=== PATIENT | male | born 1970 | race Caucasian/White ===

== ENCOUNTER 2016-11-13 14:20 | Inpatient (IN) | payer MEDICARE, MEDICAID ==
[~2016-11-13] VITALS: Ht 165.1 cm; Wt 101.3 kg
[~2016-11-13 14:20] MED LIST: LISI2.5T47 PO; PIOG30TA10 PO
[2016-11-13] MEDS ORDERED: DILT180C69 PO (14:38)
[2016-11-13] MEDS ORDERED: SERT-112 PO (14:38)
[2016-11-13] MEDS ORDERED: RIVA20TA PO (14:38)
[2016-11-13] MEDS ORDERED: SEVE800T8 PO (14:38)
[2016-11-13] MEDS ORDERED: METO-411 PO (14:38)
[2016-11-13] MEDS ORDERED: ATOR40TA70 PO (14:38)
[2016-11-13 15:04] LABS: BASOPHILS % 0.8 % (0.0-2.0); EOSINOPHILS % 2.2 % (0.0-5.0); HEMATOCRIT. 31.6 % (42.0-52.0); LYMPHOCYTES % 14.2 % (20.0-50.0); MEAN CORPUSCULAR HEMOGLOBIN 33.3 pg (28.0-32.0); MEAN CORPUSCULAR VOLUME 95.9 fL (80.0-94.0); MEAN PLATELET VOLUME 7.3 fl (7.4-10.4); MONOCYTES % 5.4 % (2.0-8.0); NEUTROPHILS % 77.4 % (40.0-76.0); PLATELET 204 x1000/uL (130-400); RED BLOOD CELL COUNT 3.29 mill/uL (4.7-6.1); RED CELL DISTRIBUTION WIDTH 13.5 % (11.6-14.6)
[2016-11-13 15:10] LABS: BG BASE EXCESS -6.8 mmol/L (-2.0-2.0); BG DEOXYHEMOGLOBIN 5.9 % (0.0-5.0); BG FRACTION INSPIRED OXYGEN 36; BG HCO3 ACT 18.9 mmol/L (22.0-26.0); BG METHEMOGLOBIN 0.4 % (0.0-1.5); BG OXYHEMOGLOBIN 92.7 % (94.0-97.0); BG PCO2 38.5 mmHg (35.0-45.0); BG PH 7.309 (7.350-7.450); BG PO2 75.2 mmHg (75.0-100.0); BG SAMPLE SITE RIGHT RADIAL; BG TOTAL HEMOGLOBIN 12.4 g/dL (12.0-18.0); BG VENT MODE NASAL CANNULA
[2016-11-13 15:12] LABS: INR 1.1; PROTHROMBIN TIME 11.4 sec (9.4-11.6)
[2016-11-13 15:15] LABS: CARBON DIOXIDE 21 mEq/L (21-32); CHLORIDE 99 mEq/L (98-107); ETHANOL BLOOD < 10 mg/dL; PHOSPHORUS 3.2 mg/dL (2.5-4.9)
[2016-11-13 15:20] LABS: TROPONIN I 0.97 ng/mL (0.00-0.04)
[2016-11-13 15:23] LABS: CLARITY URINE CLEAR (CLEAR); COLOR URINE YELLOW (YELLOW); GLUCOSE URINE 1+ (NEGATIVE); KETONES URINE NEGATIVE (NEGATIVE); LEUKOCYTE ESTERASE URINE NEGATIVE (NEGATIVE); NITRITE URINE NEGATIVE (NEGATIVE); OCCULT BLOOD URINE 1+ (NEGATIVE); PH URINE 6.5 (4.5-8.0); PROTEIN URINE 3+ (NEGATIVE); SPECIFIC GRAVITY URINE 1.011 (1.005-1.030); UROBILINOGEN URINE 0.2 E.U./dL (0.2-1.0)
[2016-11-13 15:37] LABS: *AMPHETAMINES SCREEN URINE NEGATIVE (NEGATIVE); *BARBITURATES SCREEN URINE NEGATIVE (NEGATIVE); *BENZODIAZEPINES SCREEN URINE NEGATIVE (NEGATIVE); *COCAINE SCREEN URINE NEGATIVE (NEGATIVE); CANNABINOID URINE SCREEN NEGATIVE (NEGATIVE); METHADONE URINE SCREEN NEGATIVE (NEGATIVE); OPIATES URINE SCREEN NEGATIVE (NEGATIVE); PHENCYCLIDINE URINE SCREEN NEGATIVE (NEGATIVE)
[2016-11-13] MEDS ORDERED: ASPIRIN 300MG SUPP PR ONE (15:45)
[2016-11-13] MEDS ORDERED: ACETAMINOPHEN 325MG TABLET PO PRN (16:00)
[2016-11-13] MEDS ORDERED: DIPHENHYDRAMINE 50MG/ML VIAL IV PRN (16:00)
[2016-11-13] MEDS ORDERED: IPRATROPIUM/ALBUTEROL 0.5-3(2.5)MG/3ML NEB INH PRN (16:00)
[2016-11-13] MEDS ORDERED: CLONIDINE 0.1MG TABLET PO PRN (16:00)
[2016-11-13] MEDS ORDERED: ONDANSETRON HCL 4MG/2ML VIAL IV PRN (16:00)
[2016-11-13 16:25] LABS: AMMONIA 56 uMol/L (<32)
[2016-11-13] MEDS ORDERED: POTASSIUM CHLORIDE INJ 40 MEQ in DEXT 5% WATER 250 ML IV NR (17:00)
[2016-11-14] VITALS (15 sets, daily range): BP systolic 69–172; BP diastolic 43–95
[2016-11-14 07:51] LABS: BASOPHILS % 1.4 % (0.0-2.0); EOSINOPHILS % 0.2 % (0.0-5.0); HEMATOCRIT. 31.8 % (42.0-52.0); LYMPHOCYTES % 7.7 % (20.0-50.0); MEAN CORPUSCULAR VOLUME 95.7 fL (80.0-94.0); MEAN PLATELET VOLUME 7.6 fl (7.4-10.4); MONOCYTES % 4.7 % (2.0-8.0); PLATELET 216 x1000/uL (130-400); RED BLOOD CELL COUNT 3.32 mill/uL (4.7-6.1); RED CELL DISTRIBUTION WIDTH 13.8 % (11.6-14.6)
[2016-11-14 07:57] LABS: CHLORIDE 105 mEq/L (98-107)
[2016-11-14 08:01] LABS: AMMONIA 30 uMol/L (<32)
[2016-11-14 08:06] LABS: CARBON DIOXIDE 20 mEq/L (21-32); HDL CHOLESTEROL 58 mg/dL (40-59); LDL CHOLESTEROL 91 mg/dL (5-100); PHOSPHORUS 2.9 mg/dL (2.5-4.9)
[2016-11-14] MEDS: METOPROLOL TARTRATE 50MG TABLET PO SCH ×2 (10:56→21:00)
[2016-11-14] MEDS: ASPIRIN 81MG TABLET PO SCH (10:56)
[2016-11-14] MEDS: AMLODIPINE 5MG TABLET PO SCH ×2 (10:57→21:00)
[2016-11-14] MEDS: ENOXAPARIN 30MG/0.3ML SYR SUBCUT SCH (10:58)
[2016-11-14] MEDS ORDERED: MAGNESIUM 4 G PREMIX 100 ML IV SCH (11:00)
[2016-11-14 12:29] LABS: BG BASE EXCESS -1.9 mmol/L (-2.0-2.0); BG DEOXYHEMOGLOBIN 4.6 % (0.0-5.0); BG FRACTION INSPIRED OXYGEN 28; BG HCO3 ACT 22.3 mmol/L (22.0-26.0); BG METHEMOGLOBIN 0.1 % (0.0-1.5); BG OXYGEN SATURATION 95.3 % (92.0-98.5); BG OXYHEMOGLOBIN 94.3 % (94.0-97.0); BG PCO2 36.3 mmHg (35.0-45.0); BG PH 7.406 (7.350-7.450); BG PO2 75.5 mmHg (75.0-100.0); BG SAMPLE SITE RIGHT RADIAL; BG VENT MODE NASAL CANNULA
[2016-11-14] MEDS ORDERED: SODIUM CHLORIDE 0.9% 1000ML BAG (SEPSIS BOLUS) IV NR (21:23)
[2016-11-14] MEDS: ATORVASTATIN CALCIUM 20MG TABLET PO SCH ×2 (21:38→22:47)
[2016-11-15] VITALS (75 sets, daily range): BP systolic 64–153; BP diastolic 35–89
[2016-11-15] MEDS ORDERED: PHENYLEPHRINE 40 MG in DEXT 5% WATER 250 ML IV PRN (03:07)
[2016-11-15 06:04] LABS: BASOPHILS % 0.7 % (0.0-2.0); EOSINOPHILS % 1.7 % (0.0-5.0); HEMATOCRIT. 31.2 % (42.0-52.0); HEMOGLOBIN. 10.8 g/dL (14.0-18.0); LYMPHOCYTES % 16.5 % (20.0-50.0); MEAN CORPUSCULAR HEMOGLOBIN 33.5 pg (28.0-32.0); MEAN CORPUSCULAR VOLUME 96.6 fL (80.0-94.0); MEAN PLATELET VOLUME 7.7 fl (7.4-10.4); MONOCYTES % 7.3 % (2.0-8.0); NEUTROPHILS % 73.8 % (40.0-76.0); PLATELET 203 x1000/uL (130-400); RED BLOOD CELL COUNT 3.23 mill/uL (4.7-6.1)
[2016-11-15] MEDS: ASPIRIN 81MG TABLET PO SCH (12:21)
[2016-11-15] MEDS: ENOXAPARIN 30MG/0.3ML SYR SUBCUT SCH (12:21)
[2016-11-15] MEDS: MIDODRINE HCL 5MG TABLET PO SCH ×2 (12:22→17:00)
[2016-11-15] MEDS: HYDROCODONE/ACETAMINOPHEN 5/325MG TABLET PO PRN (18:33)
[2016-11-15] MEDS: METOPROLOL TARTRATE 25MG TABLET PO SCH (21:00)
[2016-11-16] VITALS (18 sets, daily range): BP systolic 94–135; BP diastolic 24–78
[2016-11-16] MEDS: HYDROCODONE/ACETAMINOPHEN 5/325MG TABLET PO PRN ×2 (02:36→14:34)
[2016-11-16 06:21] LABS: BASOPHILS % 0.8 % (0.0-2.0); EOSINOPHILS % 3.1 % (0.0-5.0); HEMATOCRIT. 37.6 % (42.0-52.0); HEMOGLOBIN. 12.8 g/dL (14.0-18.0); LYMPHOCYTES % 19.7 % (20.0-50.0); MEAN CORPUSCULAR HEMOGLOBIN 33.5 pg (28.0-32.0); MEAN CORPUSCULAR VOLUME 98.1 fL (80.0-94.0); MEAN PLATELET VOLUME 7.5 fl (7.4-10.4); MONOCYTES % 8.9 % (2.0-8.0); NEUTROPHILS % 67.5 % (40.0-76.0); PLATELET 236 x1000/uL (130-400); RED BLOOD CELL COUNT 3.84 mill/uL (4.7-6.1)
[2016-11-16] MEDS ORDERED: VANCOMYCIN 1 G PREMIX 200 ML IV SCH (09:45)
[2016-11-16] MEDS: ASPIRIN 81MG TABLET PO SCH (09:56)
[2016-11-16] MEDS: METOPROLOL TARTRATE 25MG TABLET PO SCH ×2 (09:56→20:34)
[2016-11-16] MEDS: MIDODRINE HCL 5MG TABLET PO SCH ×3 (09:57→18:01)
[2016-11-16] MEDS: ENOXAPARIN 30MG/0.3ML SYR SUBCUT SCH (10:58)
[2016-11-16] MEDS ORDERED: VANCOMYCIN 1500MG in DEXTROSE 5% WATER 250ML IV NR (14:00)
[2016-11-16] MEDS ORDERED: DEXTROSE 50% WATER 50ML SYRINGE IV PRN (17:00)
[2016-11-16] MEDS: BLOOD SUGAR DIAGNOSTIC STRIP TEST SCH ×2 (17:26→20:34)
[2016-11-16] MEDS: INSULIN LISPRO 100 UNITS/ML SUBCUT SCH ×2 (17:26→20:35)
[2016-11-16] MEDS ORDERED: DILTIAZEM HCL 5MG/ML 5ML VIAL IV NR (17:45)
[2016-11-16] MEDS ORDERED: DILTIAZEM HCL 5MG/ML 5ML VIAL IV PRN (17:45)
[2016-11-16] MEDS: ATORVASTATIN CALCIUM 20MG TABLET PO SCH (20:34)
[2016-11-17] VITALS: BP 108/52
[2016-11-17 04:00] VITALS: BP 117/68
[2016-11-17 06:15] LABS: BASOPHILS % 0.8 % (0.0-2.0); EOSINOPHILS % 3.6 % (0.0-5.0); HEMATOCRIT. 34.7 % (42.0-52.0); HEMOGLOBIN. 12.1 g/dL (14.0-18.0); LYMPHOCYTES % 15.9 % (20.0-50.0); MEAN CORPUSCULAR HEMOGLOBIN 33.6 pg (28.0-32.0); MEAN CORPUSCULAR VOLUME 96.6 fL (80.0-94.0); MEAN PLATELET VOLUME 7.6 fl (7.4-10.4); MONOCYTES % 8.8 % (2.0-8.0); NEUTROPHILS % 70.9 % (40.0-76.0); PLATELET 238 x1000/uL (130-400); RED BLOOD CELL COUNT 3.59 mill/uL (4.7-6.1); RED CELL DISTRIBUTION WIDTH 13.8 % (11.6-14.6)
[2016-11-17 07:01] VITALS: BP 127/71
[2016-11-17] MEDS: BLOOD SUGAR DIAGNOSTIC STRIP TEST SCH ×2 (07:02→13:14)
[2016-11-17 08:00] VITALS: BP 116/60
[2016-11-17] MEDS: INSULIN LISPRO 100 UNITS/ML SUBCUT SCH ×2 (08:10→13:10)
[2016-11-17] MEDS: ASPIRIN 81MG TABLET PO SCH (09:28)
[2016-11-17] MEDS: METOPROLOL TARTRATE 25MG TABLET PO SCH (09:28)
[2016-11-17] MEDS: MIDODRINE HCL 5MG TABLET PO SCH ×2 (09:28→13:00)
[2016-11-17] MEDS: ENOXAPARIN 30MG/0.3ML SYR SUBCUT SCH (09:31)
[2016-11-17 12:00] VITALS: BP 107/55
[2016-11-17 13:42] VITALS: BP 107/55
[2016-11-17] MEDS ORDERED: METOPROLOL TARTRATE 50MG TABLET PO SCH (21:00)
== END 2016-11-17 15:45 | disposition home or self-care (01) | DRG 280 ==
LOC: ER 14:41 → 3WST 15:41 → EDBEDREQ 15:50 → ENRESERV 22:13 → MICUSO 11-15 01:49 → 7WST 11-16 13:35
PROVIDERS: ADMIT Internal Medicine; ATTEND Internal Medicine
PROC: 5A1D70Z Performance of Urinary Filtration, Intermittent, Less than 6 Hours Per Day (ICD-10-PCS; principal; 2016-11-13)
PROC: 5A09457 Assistance with Respiratory Ventilation, 24-96 Consecutive Hours, Continuous Positive Airway Pressure (ICD-10-PCS; 2016-11-13)
DX: I21.4 Non-ST elevation (NSTEMI) myocardial infarction (principal); I50.43 Acute on chronic combined systolic (congestive) and diastolic (congestive) heart failure; J96.01 Acute respiratory failure with hypoxia; E43 Unspecified severe protein-calorie malnutrition; G92 Toxic encephalopathy; I95.9 Hypotension, unspecified; I13.2 Hypertensive heart and chronic kidney disease with heart failure and with stage 5 chronic kidney disease, or end stage renal disease; E87.2 Acidosis; E11.22 Type 2 diabetes mellitus with diabetic chronic kidney disease; E87.1 Hypo-osmolality and hyponatremia; E83.42 Hypomagnesemia; N18.6 End stage renal disease; L03.114 Cellulitis of left upper limb; I47.1 Supraventricular tachycardia; I48.0 Paroxysmal atrial fibrillation; Z99.2 Dependence on renal dialysis; D64.9 Anemia, unspecified; E78.5 Hyperlipidemia, unspecified; E87.6 Hypokalemia; F10.10 Alcohol abuse, uncomplicated; G47.33 Obstructive sleep apnea (adult) (pediatric); G89.4 Chronic pain syndrome; D72.829 Elevated white blood cell count, unspecified; Z79.84 Long term (current) use of oral hypoglycemic drugs; Z82.49 Family history of ischemic heart disease and other diseases of the circulatory system; Z91.15 Patient's noncompliance with renal dialysis; Z83.3 Family history of diabetes mellitus; Z91.19 Patient's noncompliance with other medical treatment and regimen; Z79.899 Other long term (current) drug therapy; Z68.37 Body mass index [BMI] 37.0-37.9, adult
CPT/HCPCS: 36415; 36600; 70450; 70551; 71010; 80048; 80053; 80061; 80305; 81001; 82140; 82375; 82805; 82962; 83605; 83735; 84100; 84484; 85025; 85610; 86850; 86900; 87040; 87086; 93005; 93306; 96365; 96366; 97162; 99291; G0482; J1650; J1815; J3370; J3475; J3480; J3490; J7030; J7050; J7060